=== PATIENT | male | born 1935 | race Caucasian/White ===

== ENCOUNTER 2017-02-20 20:24 | Emergency (ER) | payer OTHER ==
[2017-02-20] MEDS ORDERED: TDAP ADULT 0.5 ML INJ (BOOSTRIX) IM ONE (21:45)
[2017-02-20] MEDS ORDERED: LET GEL TOPICAL 1 EA SYR TP ONE (22:13)
[2017-02-20] MEDS ORDERED: CEPHALEXIN 500MG PREPACK#4 BTL TAKEHOME ONE (22:14)
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
[2017-02-20] MEDS ORDERED: CEPHALEXIN 500 MG CAP PO ONE (22:21)
[2017-02-20 22:59] VITALS: BP 140/66; PULSE 82; RESP 15; TEMP 98.2; O2SAT 93
== END 2017-02-20 22:58 | disposition home or self-care (01) ==
DX: S51.012A Laceration without foreign body of left elbow, initial encounter (principal); S50.02XA Contusion of left elbow, initial encounter; Z79.82 Long term (current) use of aspirin; Z95.5 Presence of coronary angioplasty implant and graft; Z23 Encounter for immunization; V18.0XXA Pedal cycle driver injured in noncollision transport accident in nontraffic accident, initial encounter; Y93.55 Activity, bike riding

== ENCOUNTER 2018-03-28 14:54 | Inpatient (IN) | payer OTHER ==
[2018-03-28 16:28] LABS: PLATELET COUNT 129 10^3/uL (150-400)
[2018-03-28 16:50] LABS: INR 1.05 (0.83-1.16); PROTIME(PATIENT) 13.9 SEC (12.0-15.0)
--- NOTE | 2018-03-28 16:56 | EDPHY ---
H & P Time Seen by Provider: 03/28/18 16:00 HPI/ROS: HPI Shortness of breath. 82-year-old male by private vehicle with his . This patient reports that he was playing ice hockey. He reports that he was driving home. At rest. He had a sensation of shortness of breath and felt very lightheaded. He had a sensation of his heart beating very fast. He reports that he almost lost consciousness. He reports that he then started feeling better and well enough to continue driving and drove himself to the emergency department. No associated chest pain. No headache. No loss of sensation or weakness in his extremities. He does have a history of coronary artery disease with 2 stents placed in his LAD about 9 years ago. He has not had any intervention since that time. He is currently on aspirin and clopidogrel. ROS: Constitutional: No fever, no chills. As above. Eyes: No discharge. No changes in vision. ENT: No sore throat. No nasal congestion or rhinorrhea. Respiratory: No cough. As above. Cardiac: No chest pain, palpitations as above. Gastrointestinal: No abdominal pain, no vomiting, no diarrhea. Genitourinary: No hematuria. No dysuria or increased frequency with urination. Musculoskeletal: No back pain. No neck pain. No myalgias or arthralgias. Skin: No rashes. Neurological: No headache. No focal weakness or altered sensation. Past medical history: Coronary artery disease with stents placed as above, thoracic aortic aneurysm measuring 4.5 cm x 4.6 cm, hypertension, dyslipidemia. His cardiology rn is Dr. Rebel King. Currently takes a baby aspirin, carvedilol and clopidogrel. Social history: Here with his . 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 Drinks alcohol socially. Nonsmoker. Physical Exam: General Appearance: Alert, no distress. This patient is responding to questions appropriately and in full sentences. This patient appears well- hydrated and well-nourished. Eyes: Pupils equal and round no pallor or injection. No lid edema, erythema or injection. Respiratory: There are no retractions, lungs are clear to auscultation with good air movement bilaterally. Cardiovascular: Irregular, irregular rhythm. No murmur appreciated. Gastrointestinal: Abdomen is soft and nontender, no masses, bowel sounds normal. No focal tenderness at McBurney's point. No Dela Cruz sign. Neurological: Motor sensory function is grossly intact. Cranial nerves are normal. Gait is normal. Skin: Warm and dry, no rashes. Musculoskeletal: Neck is supple and nontender. Extremities are symmetrical. All joints range without pain or impingement. Psychiatric: No agitation. No depression. Database: EKG: EKG time is 4:01 p.m.; EKG shows a narrow complex normal sinus rhythm with a ventricular rate of 65. Multiple PVCs and PACs. Probable left ventricular hypertrophy. QS waves in V1 and V2. The OR, QRS, QT intervals are within normal limits. There are no ST-T wave changes indicative of ischemic or injury pattern. No evidence of right heart strain. Interpreted by me. Imaging: Chest x-ray PA and lateral; the cardiac mediastinal silhouette is unremarkable. Coronary stent on the left. Arterial sclerotic calcification of the thoracic aorta. Atelectasis versus fibrotic change left base No evidence of infiltrate or pneumothorax. No other acute cardiopulmonary disease process noted. Interpreted by me. CT angiogram of chest; no evidence of pulmonary embolism. Stable thoracic aortic aneurysm. Results discussed with staff radiologist. Procedures: Emergency department course: Triage vital signs reviewed. He is moderately hypertensive. Vital signs otherwise normal. IV established. Patient placed on a monitoring manager. EKG obtained and reviewed by myself. Patient's presentation is concerning for arrhythmia with near syncope. Acute coronary syndrome, pulmonary embolism, aortic dissection less likely. I discussed probable admission with the patient and his . They endorse. 5:00 p.m., the patient was re-evaluated. Resting comfortably at this time. He is currently asymptomatic. Results of his emergency department workup discussed with him and his . Elevated D-dimer and significance of this as well as indication for CT angiogram discussed. They endorse getting this test. He will be sent for CT angiogram shortly. I again discussed admission with him. He is in agreement. Hospitalist paged. 5:15 p.m., spoke with on-call hospitalist. Case discussed in detail with him. Patient accepted for admission to the hospitalist service telemetry observation. Cardiology to be paged by the hospitalist service. Rebel King will be notified. 5:45 p.m., patient re-evaluated, resting comfortably at this time. He remains asymptomatic. Results of CT angiogram of his chest discussed with him his in his son who is currently at bedside. His vital signs were reviewed and are stable. His remaining emergency department course under my care has been uneventful. He was admitted to the hospitalist service, telemetry observation in good condition. Differential Diagnosis: The differential diagnosis on this patient includes but is not limited to arrhythmia, pulmonary embolism, acute coronary syndrome, CHF. This represents a partial list of diagnoses considered. These considerations are based on history, physical exam, past history, reassessment and diagnostic testing. Smoking Status: Never smoked Constitutional: Initial Vital Signs Temperature (C) 36.8 C 03/28/18 14:57 Heart Rate 87 03/28/18 14:57 Respiratory Rate 18 03/28/18 14:57 Blood Pressure 153/104 H 03/28/18 14:57 O2 Sat (%) 94 03/28/18 14:57 O2 Delivery Mode Room Air Allergies/Adverse Reactions: No Allergies [NKA] Allergy (Verified 03/28/18 14:56) Home Medications: Medication Instructions Recorded Aspirin EC [Aspirin EC 81 mg (*)] 81 mg PO HS 06/19/15 Atorvastatin Calcium [Lipitor 40 80 mg PO HS 06/19/15 mg (*)] Clopidogrel Bisulfate [Plavix (*)] 75 mg PO DAILY 06/19/15 Nitroglycerin [Nitrostat 0.4 mg 0.4 mg SL PRN PRN 06/19/15 (*)] Cephalexin [Keflex] 500 mg PO QID 5 Days cap 02/20/17 Vitamin B12 02/20/17 Carvedilol 03/28/18 Medical Decision Making - Diagnostics Imaging Results: Imaging Impressions Chest X-Ray 03/28/18 16:01 Impression: 1. Mild subsegmental atelectasis left base versus fibrotic change. 2. Arteriosclerotic calcification of the thoracic aorta. 3. Coronary stent on the left. Chest/Thorax CTA 03/28/18 16:57 Impression: 1. Negative for pulmonary embolus. 2. Redemonstration of an ascending aortic aneurysm, which is stable since 2008. 3. Cholelithiasis. Findings and recommendations discussed with Leno Ovalles MD at 1727 hour, 03/28/2018. - Data Points Laboratory Results: Laboratory Results 03/28/18 16:05 03/28/18 16:05 03/28/1817/18 18 16:07 16:05 16:05 WBC 9.98 10^3/uL H 10^3/uL (3.80-9.50) RBC 4.21 10^6/uL L 10^6/uL (4.40-6.38) Hgb 14.3 g/dL g/dL (13.7-17.5) Hct 42.5 % % (40.0-51.0) MCV 101.0 fL H fL (81.5-99.8) MCH 34.0 pg pg (27.9-34.1) MCHC 33.6 g/dL g/dL (32.4-36.7) RDW 12.9 % % (11.5-15.2) Plt Count 129 10^3/uL L 10^3/uL (150-400) MPV 11.5 fL fL (8.7-11.7) Neut % (Auto) 61.9 % % (39.3-74.2) Lymph % (Auto) 28.1 % % (15.0-45.0) [place] % (Auto) 8.3 % % (4.5-13.0) Eos % (Auto) 1.2 % % (0.6-7.6) Baso % (Auto) 0.3 % % (0.3-1.7) Nucleat RBC Rel Count 0.0 % % (0.0-0.2) Absolute Neuts (auto) 6.18 10^3/uL 10^3/uL (1.70-6.50) Absolute Lymphs (auto) 2.80 10^3/uL 10^3/uL (1.00-3.00) Absolute Monos (auto) 0.83 10^3/uL H 10^3/uL (0.30-0.80) Absolute Eos (auto) 0.12 10^3/uL 10^3/uL (0.03-0.40) Absolute Basos (auto) 0.03 10^3/uL 10^3/uL (0.02-0.10) Absolute Nucleated RBC 0.00 10^3/uL 10^3/uL (0-0.01) Immature Gran % 0.2 % % (0.0-1.1) Immature Gran # 0.02 10^3/uL 10^3/uL (0.00-0.10) PT INR APTT D-Dimer Sodium 140 mEq/L mEq/L (135-145) Potassium 3.9 mEq/L mEq/L (3.3-5.0) Chloride 103 mEq/L mEq/L (97-110) Carbon Dioxide 27 mEq/l mEq/l (22-31) Anion Gap 10 mEq/L mEq/L (8-16) BUN 23 mg/dL mg/dL (7-23) Creatinine 1.0 mg/dL mg/dL (0.7-1.3) Estimated GFR > 60 Glucose 150 mg/dL H mg/dL (70-100) Calcium 9.4 mg/dL mg/dL (8.5-10.4) POC Troponin I 0.05 ng/mL ng/mL (0.00-0.08) NT-Pro-B Natriuret Pep 1230 pg/mL H pg/mL (0-450) 03/28/18 16:00 WBC RBC Hgb Hct MCV MCH MCHC RDW Plt Count MPV Neut % (Auto) Lymph % (Auto) [place] % (Auto) Eos % (Auto) Baso % (Auto) Nucleat RBC Rel Count Absolute Neuts (auto) Absolute Lymphs (auto) Absolute Monos (auto) Absolute Eos (auto) Absolute Basos (auto) Absolute Nucleated RBC Immature Gran % Immature Gran # PT 13.9 SEC SEC (12.0-15.0) INR 1.05 (0.83-1.16) APTT 25.9 SEC SEC (23.0-38.0) D-Dimer 1.24 ug/mLFEU H ug/mLFEU (0.00-0.50) Sodium Potassium Chloride Carbon Dioxide Anion Gap BUN Creatinine Estimated GFR Glucose Calcium POC Troponin I NT-Pro-B Natriuret Pep Point of Care Test Results: Chemistry 03/28/18 16:07 POC Troponin I 0.05 ng/mL ng/mL (0.00-0.08) Departure - Departure Disposition: [facility] Inpatient Acute Clinical Impression: Dyspnea, Near syncope
[2018-03-28] MEDS ORDERED: IOPAMIDOL (ISOVUE 370) 100 ML BTL IV ONE (16:59)
[2018-03-28] MEDS ORDERED: ACETAMINOPHEN 325 MG TAB PO PRN (18:28)
[2018-03-28] MEDS ORDERED: ONDANSETRON DISINTEGRATING 4 MG TAB PO PRN (18:28)
[2018-03-28] MEDS ORDERED: ONDANSETRON 4 MG/2 ML VIAL IVP PRN (18:28)
[2018-03-28] MEDS ORDERED: NITROGLYCERIN 0.4 MG BTL SL PRN (18:52)
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
[2018-03-28] MEDS ORDERED: ASPIRIN EC 81 MG TAB PO SCH (21:15)
[2018-03-28] MEDS: ASPIRIN EC 81 MG TAB PO SCH (21:58)
[2018-03-28] MEDS: ATORVASTATIN CALCIUM 40 MG TAB PO SCH (21:58)
--- NOTE | 2018-03-28 23:16 | CPEKG ---
Test Reason : OPEN Blood Pressure : / mmHG Vent. Rate : 065 BPM Atrial Rate : 000 BPM P-R Int : 262 ms QRS Dur : 092 ms QT Int : 417 ms P-R-T Axes : 006 000 094 degrees QTc Int : 434 ms Sinus rhythm Multiple premature complexes, vent & supraven Prolonged IA interval Left ventricular hypertrophy Anterior Q waves, possibly due to LVH Confirmed by Leno Ovalles ([id number]) on 03/28/2018 11:15:56 PM Referred By: Confirmed By:Leno Ovalles
[2018-03-29] MEDS: CLOPIDOGREL BISULFATE 75 MG TAB PO SCH (10:39)
--- NOTE | 2018-03-29 11:49 | HOSPPROG ---
Hospitalist Progress Note Assessment/Plan: Assessment: 82yo M with history of CAD s/p QUINTON x2, thoracic aortic aneurysm, carotid stenosis s/p R CEA, HTN, HLD presents after episode of palpitations and near syncope. Admitted for observation. Plan: #Near syncope: with new wlal motion abnormality on echo and e/o complete heart block on review of tele. Plan for heart cath as well as possible pacer placement. #CAD: Anteroseptal [place] in 2008 s/p QUINTON x2 to LAD. as above. - Continue home asa, plavix, statin # heart block: with e/o complete heart block as well as short runs of VT in setting of new wall motion abnormality. #Thrombocytopenia: Chronic and plts essentially at baseline. Monitor. #HTN: BP mildly elevated. Not on anti-hypertensives at home. Monitor. #HLD: On statin. #H/o carotid stenosis: S/p R CEA. Diet: cardiac VTE ppx: ambulate Code: full Dispo: IP status, will need > 48 hours stay for eval/mgmt of above Care plan reviewed with cardiology and multidisciplinary care team Subjective: no significant overnight events, patient with plans for cath and possible pacer today Objective: Vital Signs Temp Pulse Resp BP Pulse Ox 36.7 C 60 18 126/77 H 93 03/29/18 08:00 03/29/18 08:00 03/29/18 08:00 03/29/18 08:00 03/29/18 08:00 03/28/18 03/29/18 03/30/18 05:59 05:59 05:59 Intake Total 300 Balance 300 PT 13.9 SEC (12.0-15.0) 03/28/18 16:00 INR 1.05 (0.83-1.16) 03/28/18 16:00 awake alert anicteric op clear rrr no mrg cta b soft nt nd no cce warm dry well perfused oriented appropriate ICD10 Worksheet Patient Problems: Problems Problem Status Onset Syncope Acute Elbow contusion Acute Elbow laceration Acute Dyspnea Acute Near syncope Acute
[2018-03-29] MEDS ORDERED: DIAZEPAM 5 MG TAB PO ONE (12:21)
[2018-03-29] MEDS ORDERED: diphenhydrAMINE 25 MG CAP PO ONE ×2 (12:21→13:14)
[2018-03-29] MEDS ORDERED: FAMOTIDINE 20 MG TAB PO ONE (12:21)
[2018-03-29] MEDS ORDERED: TEMAZEPAM 15 MG CAP PO PRN (12:21)
--- NOTE | 2018-03-29 12:24 | PDPROPOC ---
Sedation Plan of Care Sedation Plan of Care: vital signs stable, mental status noted, patient educated of risks, benefits, alternatives, patient can tolerate sedation ASA Classification: ASA 3 Planned drugs: fentanyl, midazolam Mallampati Score: Class 3 Mallampati Reference Image: Patient passed 3-3-2 rule?: Yes
--- NOTE | 2018-03-29 12:25 | PDHPUP ---
History & Physical Update H&P update statement: This history and physical update is based on an assessment of the patient which was completed after admission or registration (within 24 hours), but prior to the surgery/procedure. H&P update: H&P reviewed & patient examined, changes noted (patient has runs of wide complex tachycardia as well as brief atrial tach with phase 4 block and no conduction to ventrical with 3.5 second pauses. )
[2018-03-29] MEDS ORDERED: NS 1,000 ML IV SCH (12:30)
--- NOTE | 2018-03-29 12:30 | ECHO ---
[email or web address] [address] [address] Main: [phone] Fax: Transthoracic Echocardiogram Name: DARIN GAGNON MR#: [id number] Study Date: 03/29/2018 Study Time: 08:51 AM Date of : 1935 Age: 82 year(s) Height: 182.9 cm (72 in.) Weight: 74.84 kg (165 lb.) BSA: 1.96 m2 Gender: Male Examination: Echo Indication: eval ventricular fxn, valves; h/o stent nine years ago Image Quality: Adequate Contrast: Requested by: Ashish Fountain BP: 126 mmHg/77 mmHg Heart Rate: Rhythm: Indication: eval ventricular fxn, valves; h/o stent nine years ago Procedure Staff Icu Rn: Kymberly Blum [facility] Reading Physician: Pratik Sotomayor MD Requesting Provider: Conclusions: Mildly dilated left ventricle. Borderline concentric LV hypertrophy. Low normal left ventricular systolic function. EF is 52 %. There is a small area of mild hypokinesis in the inferolateral wall. Grade II Diastolic Dysfunction. Normal RV function. The left atrium is severely dilated. The right atrium is moderately dilated. Moderate mitral valve regurgitation is present. No mitral stenosis is present. The aortic valve is tri-leaflet. Mild aortic cusp calcification is noted. No aortic valve stenosis is present. Moderate tricuspid regurgitation is present. Right ventricular systolic pressure measures 58mmHg. The pulmonary artery pressure is moderately increased. Mildly dilated ascending aorta measuring 4.0 cm. No pericardial effusion. Measurements: Chambers Valvular Assessment AV/MV Valvular Assessment TV/PV Normal Normal Normal Name Value Range Name Value Range Name Value Range IVSd (2D): 1.1 cm (0.6 cm-1.1 AV meanP mmHg ( - ) TR Vmax: 3.47 mm/s ( - ) cm) PHYLICIA (VTI): 1.7 cm ( - ) TR PGmax: 48 mmHg ( - ) LVDd (2D): 5.7 cm (4.2 cm-5.9 MV E Vmax: 0.87 m/s ( - ) syst. PAP: 58 mmHg ( - ) cm) MV A Vmax: 0.74 m/s ( - ) PV Vmax: 0.90 m/s (0.6 m/s-0.9 LVDs (2D): 4.4 cm (2.1 cm-4 MV E/A: 1.18 ( - ) m/s) cm) MV meanP mmHg ( - ) PV PGmax: 3 mmHg ( - ) Patient: DARIN GAGNON Study Date: 03/29/2018 Page 1 of 3 08:51 AM LVPWd (2D): 1.0 cm (0.6 cm-1 MVA (Vmax): 4.9 m/s ( - ) cm) LVOTd 2.1 cm 2.1 cm mm LVEF (BP): 52 % (>=55 %) RVDd(2D): 3.6 cm (1.9 cm-3.8 cmmm) Continued Measurements: Chambers Valvular Assessment AV/MV Valvular Assessment TV/PV Name Value Name Value Name Value LADs Lon.1 cm MV Annulus: 3.2 cm CVP (est.): 10 mmHg LA Area: 29.8 cm2 MV DecTime: 155 m/s LA Volume: 107 ml MV E' Septal: 0.03 m/s LA Volume Index: 54.6 ml/m2 MV E/E' Septal: 25.60 TAPSE: 2.6 cm MV E/E' Lateral: 12.50 RA Area: 22.0 cm2 MV VTI: 14.90 cm MR ERO: 0.220 cm2 MR PISA radius: 7 mm MR Reg. Volume: 48 ml MR Reg. Fraction: 40 % Additional Vessels Name Value Ao Ascendin.0 cm Findings: Left Ventricle: Mildly dilated left ventricle. Borderline concentric LV hypertrophy. Low normal left ventricular systolic function. EF is 52 %. There is a small area of mild hypokinesis in the inferolateral wall. Grade II Diastolic Dysfunction. Right Ventricle: Normal size right ventricle. Normal RV function. Left Atrium: The left atrium is severely dilated. Normal appearing atrial septum. Right Atrium: The right atrium is moderately dilated. Mitral Valve: There is moderate thickening of the mitral valve leaflets. Moderate mitral valve regurgitation is present.No mitral stenosis is present. The cause of the mitral valve regurgitation is annular dilatation. Aortic Valve: The aortic valve is tri-leaflet. Mild aortic cusp calcification is noted. Trivial aortic valve regurgitation. No aortic valve stenosis is present. Tricuspid Valve: The tricuspid valve is normal in appearance and function. Moderate tricuspid regurgitation is present. Right ventricular systolic pressure measures 58mmHg. The pulmonary artery pressure is moderately increased. Pulmonic Valve: The pulmonic valve is normal in appearance and function. Trivial pulmonic valve regurgitation. There is no pulmonic stenosis seen. Aorta: Normal size aortic root. Mildly dilated ascending aorta measuring 4.0 cm. IVC: The IVC is normal sized. There is less than 50% respiratory excursion. Pericardium: No pericardial effusion. Patient: DARIN GAGNON Study Date: 03/29/2018 Page 2 of 3 08:51 AM (No Signature Object) Patient: DARIN GAGNON Study Date: 03/29/2018 Page 3 of 3 08:51 AM [id number]
[2018-03-29 12:47] LABS: PLATELET COUNT 141 10^3/uL (150-400)
[2018-03-29 12:59] LABS: INR 1.08 (0.83-1.16); PROTIME(PATIENT) 14.2 SEC (12.0-15.0)
[2018-03-29] MEDS ORDERED: FAMOTIDINE 20 MG TAB ONE (13:14)
[2018-03-29] MEDS ORDERED: DIAZEPAM 5 MG TAB ONE (13:14)
[2018-03-29] MEDS ORDERED: ASPIRIN EC 325 MG TAB PO ONE (13:14)
[2018-03-29] MEDS ORDERED: LIDOCAINE 1% 300 MG/30 ML SDV ONE (14:52)
[2018-03-29] MEDS ORDERED: fentaNYL 100 MCG/2 ML INJ ONE (14:53)
[2018-03-29] MEDS ORDERED: IOPAMIDOL (ISOVUE-370) 150 ML BTL IV ONE (14:53)
[2018-03-29] MEDS ORDERED: MIDAZOLAM 2 MG/2 ML VIAL ONE ×2 (14:53→16:26)
--- NOTE | 2018-03-29 16:35 | PDDXCAT ---
Diagnostic Cath Note - . Date: 03/29/18 Water Quality Analyst: Christine Indication: other (new wall motion abnormality inferolateral region, with complete heart block, wide complex tachycardia) - Procedure Access: right groin Procedure: left heart catheterization - Materials Left Heart Cath size: 6F Left Heart Cath materials: JL4.0, JL5.0, JR4.0, pigtail - Findings-Left Heart Catheterization LM: 5 mm in size and bifurcates into an LAD and circumflex system. LAD: 3.5mm in size. The vessel is widely patent there is an 80% ostial stenosis in the diagonal near the stented segment of the LAD. HUI III flow to the distal vessel. LCX: The circumflex is 3.5 mm in size with 100% occlusion in the circumflex proper distal to an obtuse marginal branch. There are left to left collaterals to the diustal vessel implying some degree of chronicity. This lesion is new compared to angiography 2008. RCA: 50% ostial stenosis with relatively diffuse and calcific disease. There is HUI flow to the distal vessel. EDP: 28mmHg LVEF: The left ventricle is enlarged and not well visualized with LV injection. EF 40-45%. Wall motion: There is anterior wall and apical hypokinesis consistent with his prior history of an NC. The visualized portion of the thoracic aorta is enlarged and is likely aneurysmal. Complications: NONE Estimated blood loss: <50ml Closure method: Angioseal Assessment: Bill has [place] vessel coronary disease with widely patent LAD stents and HUI III flow to the LAD. New occlusion of the distal Left circumflex likely chronic because of collateral circulation. There is obstructive disease of the third diagonal vessel and ostial RCA disease all of which should be managed medically. Plan: The patient should have an EP study to evaluate whether or not he would benefit from a pacemaker or an AICD. He has both atrial tachycardia with Phase IV block as well as wide complex tachycardia, which may be aberrantly conducted a tach versus scar related ventricular tachycardia. We will plan on pacer or AICD insertion following EP study by Dr. Melvin tomorrow. Intervention: NONE Patient Problems: Problems Problem Status Onset Dyspnea Acute Near syncope Acute Elbow contusion Acute Elbow laceration Acute Syncope Acute
[2018-03-29] MEDS ORDERED: BIVALIRUDIN 250 MG/5 ML VIAL IV ONE (16:48)
--- NOTE | 2018-03-29 16:54 | ASMTCMCOM ---
CM Note CM Note Notes: Spoke with pt, significant other and RN in the pt's room. Pt lives at home independently and very active in fact playing hockey the day of admission. Pt to receive heart catheterization and possible pacer placement today. Pt is anticipated to d/c home independently.CM to follow. D/C Plan: Independent Date Signed: 03/29/2018 04:53 PM Electronically Signed By:Christy Quintero
[2018-03-29] MEDS ORDERED: ATROPINE SULFATE 1 MG/10 ML SYR ONE (17:12)
[2018-03-29] MEDS ORDERED: ATROPINE SULFATE 1 MG/10 ML SYR IVP PRN (18:27)
[2018-03-29] MEDS ORDERED: OXYCODONE/APAP 5/325 TAB PO PRN (18:27)
[2018-03-29] MEDS: ATORVASTATIN CALCIUM 40 MG TAB PO SCH (20:21)
[2018-03-29] MEDS: ASPIRIN EC 81 MG TAB PO SCH (20:21)
[2018-03-29] MEDS ORDERED: ASPIRIN EC 81 MG TAB PO SCH (21:00)
[2018-03-30 04:18] LABS: PLATELET COUNT 123 10^3/uL (150-400)
[2018-03-30 04:25] LABS: INR 1.18 (0.83-1.16); PROTIME(PATIENT) 15.2 SEC (12.0-15.0)
--- NOTE | 2018-03-30 07:48 | PDMN ---
Medical Necessity Medical necessity: MCG: M89 CP- indicative or serious dg other than CAD- pt with extensive cardiac hx now with near syncope, echo showing complete heart block , cardiac cath showing obstructive disease- atrial tachycardia with Phase IV block , wide complex tachycardia, , poss EP study and pacemaker? further eval and tx needed status changed 03/29/18 for ongoing med nec > 2 MN
[2018-03-30] MEDS: CLOPIDOGREL BISULFATE 75 MG TAB PO SCH ×2 (11:41→12:43)
--- NOTE | 2018-03-30 13:15 | HOSPPROG ---
Hospitalist Progress Note Assessment/Plan: Assessment: 82yo M with history of CAD s/p QUINTON x2, thoracic aortic aneurysm, carotid stenosis s/p R CEA, HTN, HLD presents after episode of palpitations and near syncope found to have runs of complete heart block and WCT Plan: #Near syncope: with new wall motion abnormality on echo and e/o complete heart block on review of tele. s/p heart cath with no intervention. Plan for EP study today as next. # heart block: with e/o complete heart block as well as short runs of VT in setting of new wall motion abnormality. EP study with possible AICD/pacer placement today. #CAD: Anteroseptal GA in 2008 s/p QUINTON x2 to LAD. as above-cath yesterday without e/o flow limiting obstruction. Continue home asa, plavix, statin #Thrombocytopenia: Chronic and plts essentially at baseline. Monitor. # HTN: BP mildly elevated. Not on anti-hypertensives at home. Monitor. # HLD: On statin. #H/o carotid stenosis: S/p R CEA. Diet: cardiac VTE ppx: ambulate Code: full Dispo: IP status, will need > 48 hours stay for eval/mgmt of above Care plan reviewed with cardiology and multidisciplinary care team, further hx obtained from patients and son present at baseline Subjective: no significant overnight events, patient notes that he is feeling eager to get the procedure done, he currently feels well Objective: Vital Signs Temp Pulse Resp BP Pulse Ox 36.7 C 58 L 16 134/78 H 94 03/30/18 11:42 03/30/18 11:42 03/30/18 11:42 03/30/18 11:42 03/30/18 11:42 Laboratory Results 03/30/18 03:14 03/30/18 03:14 PT 15.2 SEC (12.0-15.0) H 03/30/18 03:14 INR 1.18 (0.83-1.16) H 03/30/18 03:14 awake alert anicteric op clear rrr no mrg cta b soft nt nd no cce warm dry well perfused oriented appropriate ICD10 Worksheet Patient Problems: Problems Problem Status Onset Dyspnea Acute Near syncope Acute Elbow contusion Acute Elbow laceration Acute Syncope Acute
--- NOTE | 2018-03-30 14:40 | PDCARCONS ---
Cardiology Consult Reason for Consult: Near syncope Chief Complaint: Near syncope Requesting Physician: Rebel King History of Present Illness: I was asked by Dr. Rebel King to see this patient. Patient presented with sudden onset of near syncope while driving his car. Telemetry strips were reviewed which showed episodes of atrial arrhythmia/ tachycardia which did not conduct to his ventricle and cause sinus pauses. Also episode of wide complex rhythm was noted. He underwent coronary angiography yesterday which did not show any new lesions. History Information - Allergies/Home Medication List Allergies/Adverse Reactions: No Allergies [NKA] Allergy (Verified 03/28/18 14:56) Home Medications: Aspirin EC [Aspirin EC 81 mg (*)] 81 mg PO HS 06/19/15 [Last Taken 03/27/18] Atorvastatin Calcium [Lipitor 40 mg (*)] 40 mg PO HS 06/19/15 [Last Taken ] Clopidogrel Bisulfate [Plavix (*)] 75 mg PO DAILY 06/19/15 [Last Taken 03/28/18] Nitroglycerin [Nitrostat 0.4 mg (*)] 0.4 mg SL PRN PRN 06/19/15 [Last Taken Unknown] Herbals/Supplements -Info Only 1 ea PO DAILY 03/28/18 [Last Taken 03/28/18 11:00 ] Past Medical History: - Social History Smoking Status: Never smoked Alcohol Use: Rarely Drug Use: None Physical Exam Physical Exam: Temp Pulse Resp BP Pulse Ox 36.7 C 58 L 16 134/78 H 94 03/30/18 11:42 03/30/18 11:42 03/30/18 11:42 03/30/18 11:42 03/30/18 11:42 O2 (L/minute) 1 Constitutional: no apparent distress, appears nourished Eyes: PERRL, anicteric sclera Ears, Nose, Mouth, Throat: moist mucous membranes, hearing normal Cardiovascular: regular rate and rhythym Gastrointestinal: normoactive bowel sounds, soft, non-tender abdomen Genitourinary: no bladder fullness Skin: warm, normal color Neurologic: AAOx3, sensation intact bilaterally Psychiatric: interacting appropriately, not anxious, not encephalopathic Lab and Imaging 03/30/18 03:14 03/30/18 03:14 WBC 8.11 10^3/uL (3.80-9.50) 03/30/18 03:14 RBC 4.06 10^6/uL (4.40-6.38) L 03/30/18 03:14 Hgb 13.6 g/dL (13.7-17.5) L 03/30/18 03:14 Hct 41.1 % (40.0-51.0) 03/30/18 03:14 MCV 101.2 fL (81.5-99.8) H 03/30/18 03:14 MCH 33.5 pg (27.9-34.1) 03/30/18 03:14 MCHC 33.1 g/dL (32.4-36.7) 03/30/18 03:14 RDW 13.3 % (11.5-15.2) 03/30/18 03:14 Plt Count 123 10^3/uL (150-400) L 03/30/18 03:14 MPV 11.7 fL (8.7-11.7) 03/30/18 03:14 Neut % (Auto) 45.4 % (39.3-74.2) 03/30/18 03:14 Lymph % (Auto) 39.7 % (15.0-45.0) 03/30/18 03:14 [place] % (Auto) 10.2 % (4.5-13.0) 03/30/18 03:14 Eos % (Auto) 4.1 % (0.6-7.6) 03/30/18 03:14 Baso % (Auto) 0.4 % (0.3-1.7) 03/30/18 03:14 Nucleat RBC Rel Count 0.0 % (0.0-0.2) 03/30/18 03:14 Absolute Neuts (auto) 3.68 10^3/uL (1.70-6.50) 03/30/18 03:14 Absolute Lymphs (auto) 3.22 10^3/uL (1.00-3.00) H 03/30/18 03:14 Absolute Monos (auto) 0.83 10^3/uL (0.30-0.80) H 03/30/18 03:14 Absolute Eos (auto) 0.33 10^3/uL (0.03-0.40) 03/30/18 03:14 Absolute Basos (auto) 0.03 10^3/uL (0.02-0.10) 03/30/18 03:14 Absolute Nucleated RBC 0.00 10^3/uL (0-0.01) 03/30/18 03:14 Immature Gran % 0.2 % (0.0-1.1) 03/30/18 03:14 Immature Gran # 0.02 10^3/uL (0.00-0.10) 03/30/18 03:14 PT 15.2 SEC (12.0-15.0) H 03/30/18 03:14 INR 1.18 (0.83-1.16) H 03/30/18 03:14 APTT 28.9 SEC (23.0-38.0) 03/30/18 03:14 D-Dimer 1.24 ug/mLFEU (0.00-0.50) H 03/28/18 16:00 Sodium 142 mEq/L (135-145) 03/30/18 03:14 Potassium 4.2 mEq/L (3.3-5.0) 03/30/18 03:14 Chloride 107 mEq/L (97-110) 03/30/18 03:14 Carbon Dioxide 28 mEq/l (22-31) 03/30/18 03:14 Anion Gap 7 mEq/L (8-16) L 03/30/18 03:14 BUN 16 mg/dL (7-23) 03/30/18 03:14 Creatinine 1.1 mg/dL (0.7-1.3) 03/30/18 03:14 Estimated GFR > 60 03/30/18 03:14 Glucose 103 mg/dL (70-100) H 03/30/18 03:14 Calcium 8.6 mg/dL (8.5-10.4) 03/30/18 03:14 Magnesium 1.8 mg/dL (1.6-2.3) 03/30/18 03:14 POC Troponin I 0.05 ng/mL (0.00-0.08) 03/28/18 16:07 Troponin I 0.055 ng/mL (0.000-0.034) H 03/29/18 01:05 NT-Pro-B Natriuret Pep 1230 pg/mL (0-450) H 03/28/18 16:05 Triglycerides 64 mg/dL (40-150) 03/29/18 12:40 Cholesterol 119 mg/dL (140-220) L 03/29/18 12:40 Cholesterol Risk Factr 0.4 (0.2-1.0) 03/29/18 12:40 LDL Cholesterol, Calc 61 mg/dL (80-100) L 03/29/18 12:40 LDL Risk Factor 0.6 (0.2-1.0) 03/29/18 12:40 VLDL Cholesterol 13 mg/dL (8-25) 03/29/18 12:40 Non-HDL Cholesterol 74 mg/dL (90-129) L 03/29/18 12:40 HDL Cholesterol 45 mg/dL (40-65) 03/29/18 12:40 LDL/HDL Ratio 1.36 RATIO (1.00-3.64) 03/29/18 12:40 Cholesterol/HDL Ratio 2.64 RATIO (1.00-4.97) 03/29/18 12:40 Patient ABO/Rh O POSITIVE 03/30/18 03:14 Antibody Screen NEGATIVE 03/30/18 03:14 Visualized and Interpreted EKG results: Yes EKG additional interpertation: Sinus rhythm. First-degree heart block. Nonspecific IVCD. Telemetry: Reviewed, see assessment and plan A/P Assessment: Near syncope Coronary artery disease, prior [place] LVEF 40-45% Plan: 82-year-old male presenting with near syncope. I have reviewed his telemetry monitoring. This shows atrial tachycardia which does not conduct to the ventricles causing ventricular pauses of up to 3 sec. We also noticed a wide complex tachycardia at approximately 150 beats per minute, same rate as his atrial tachycardia. Differential diagnosis of the wide complex tachycardia is atrial tachycardia with aberrancy. Also given his LV EF 40 40-45% and prior ventricular scar, ventricular tachycardia remains in the differential diagnosis. At the minimum, this gentleman needs a dual-chamber pacemaker implantation. Electrophysiology studies recommended to assess for inducible ventricular tachycardia, if this is the case a dual-chamber ICD will be implanted. Risks and benefits of EPS/ablation including but not limited to risks of , myocardial infarction, stroke, tamponade which may require emergent cardiac surgery, AV block requiring implantation of a permanent pacemaker, vascular access complications which may require surgery, deep venous thrombosis, pulmonary embolism, infection, risks associated with sedation/anesthesia were discussed with the patient. Risks of transvenous pacemaker implantation including but not limited to , myocardial infarction, stroke, cardiac tamponade which may require emergent cardiac surgery, infection, bleeding, pneumothorax, lead dislodgement and risks of sedation/anesthesia were discussed. Long-term issues like pacemaker pocket erosion, lead failure, venous stenosis, superior vena cava syndrome, need for lead extraction were discussed. Need for close long-term follow-up in our device clinic was emphasized. Need for generator change was discussed. Risks of transvenous ICD implantation including but not limited to , myocardial infarction, stroke, cardiac tamponade which may require emergent cardiac surgery, infection, bleeding, pneumothorax, lead dislodgement and risks of sedation/anesthesia were discussed. Long-term issues like ICD pocket erosion , lead failure, venous stenosis, superior vena cava syndrome, need for lead extraction were discussed. Need for close long-term follow-up in our device clinic was emphasized. Need for generator change was discussed. We discussed that appropriate and inappropriate ICD shocks can occur. The risk of inappropriate ICD shocks is higher in patients with atrial fibrillation. His was present for this dictation. Case was discussed in person with the patient's creative strategist Dr. Rebel King.
[2018-03-30] MEDS ORDERED: HEPARIN 10,000 UNIT/10 ML MDV (1,000 UNIT/ML) ONE (15:26)
[2018-03-30] MEDS ORDERED: LIDOCAINE 1% 300 MG/30 ML SDV ONE (15:26)
[2018-03-30] MEDS ORDERED: IOPAMIDOL (ISOVUE-300) 100 ML BTL ONE (15:27)
[2018-03-30] MEDS ORDERED: BUPIVACAINE 0.75% 10 ML SDV ONE (15:27)
[2018-03-30] MEDS ORDERED: PROPOFOL/EMULSION 500 MG/50 ML BOTTLE IV ONE (15:34)
[2018-03-30] MEDS ORDERED: MIDAZOLAM 2 MG/2 ML VIAL ONE (15:38)
[2018-03-30] MEDS ORDERED: fentaNYL 100 MCG/2 ML INJ ONE (15:38)
[2018-03-30] MEDS ORDERED: MIDAZOLAM 2 MG/2 ML VIAL IVP ONE (16:15)
[2018-03-30] MEDS ORDERED: ISOPROTERENOL HCL/D5W 0.2 MG/50 ML BAG IV ONE (16:18)
[2018-03-30] MEDS ORDERED: NALOXONE HCL 0.4 MG/ML INJ IVP PRN (16:20)
[2018-03-30] MEDS ORDERED: ALBUTEROL 3 ML DEYVIAL IH PRN (16:20)
[2018-03-30] MEDS ORDERED: DEXAMETHASONE 4 MG/ML VIAL IVP PRN (16:20)
[2018-03-30] MEDS ORDERED: fentaNYL 100 MCG/2 ML INJ IVP PRN (16:20)
--- NOTE | 2018-03-30 16:20 | PDANEPAE ---
ANE History of Present Illness 82 y/o male for EP study and possible ICD. History of [place]. Stents X 2 ANE Past Medical History - Cardiovascular History Hx Coronary Artery / Peripheral Vascular Disease: Yes - Pulmonary History Hx Oxygen in Use at Home: No Hx Sleep Apnea: No - Endocrine History Hx Diabetes: No - Chronic Pain History Chronic Pain: No ANE Review of Systems Review of systems is: negative Review of Systems: ANE Patient History - Allergies Allergies/Adverse Reactions: No Allergies [NKA] Allergy (Verified 03/28/18 14:56) - Home Medications Home Medications: Aspirin EC [Aspirin EC 81 mg (*)] 81 mg PO HS 06/19/15 [Last Taken 03/27/18] Atorvastatin Calcium [Lipitor 40 mg (*)] 40 mg PO HS 06/19/15 [Last Taken ] Clopidogrel Bisulfate [Plavix (*)] 75 mg PO DAILY 06/19/15 [Last Taken 03/28/18] Nitroglycerin [Nitrostat 0.4 mg (*)] 0.4 mg SL PRN PRN 06/19/15 [Last Taken Unknown] Herbals/Supplements -Info Only 1 ea PO DAILY 03/28/18 [Last Taken 03/28/18 11:00 ] - Smoking Hx Smoking Status: Never smoked - Alcohol Use Alcohol Use: Rarely ANE Labs/Vital Signs - Labs Result Diagrams: 03/30/18 03:14 03/30/18 03:14 - Vital Signs Blood Pressure: 134/78 Heart Rate: 58 Respiratory Rate: 16 O2 Sat (%): 94 Height: 182.88 cm Weight: 74.933 kg ANE Physical Exam - Airway Neck exam: FROM Mallampati Score: Class 2 Mouth exam: normal dental/mouth exam - Pulmonary Pulmonary: no respiratory distress - Cardiovascular Cardiovascular: regular rate and rhythym - ASA Status ASA Status: III ANE Anesthesia Plan Anesthesia Plan: MAC
[2018-03-30] MEDS ORDERED: CEFAZOLIN 1 GM/DEXTROSE/50 ML BAG IV ONE (17:05)
[2018-03-30] MEDS ORDERED: LIDO/EPI 1% **for epidural** 30 ML SDV ONE (17:05)
[2018-03-30] MEDS ORDERED: PROPOFOL 200 MG/20 ML VIAL ONE (17:23)
[2018-03-30] MEDS ORDERED: ceFAZolin 2 GM/DEXTROSE 100 ML IV ONE (17:30)
[2018-03-30] MEDS ORDERED: BACITRACIN 50,000 UNIT in SODIUM CL IRRIG SOLUTION 1,000 ML IRR ONE (17:30)
--- NOTE | 2018-03-30 18:49 | EPPROC ---
Electrophysiology Procedure Note: PROCEDURE: 1. MRI compatible dual chamber automatic implantable cardioverter-defibrillator implantation 2. Defibrillator threshold testing DATE OF PROCEDURE: 03/30/2018 DEVICE: Biotronik Ilivia 7 DR-T DF4 ProMRI model# 990186 Serial #[id number] LEADS: Right atrial lead Biotronik Solia S 45 model#236189 Serial # [id number]; Right ventricular lead Biotronik Plexa ProMRI S 65 model# 922270 Serial# [id number] COMPLICATIONS: None ANIMAL RESEARCHER: Rebel King MD INDICATION AND APPROPRIATE USE CRITERIA: The device is being used as a primary prevention. The patient has compete heart block and wide complex tachycardia as well as atrial tachycardia and sustained VT. PROCEDURE IN DETAIL: After informed consent was obtained and n.p.o. status was confirmed, the region of the left subclavicular fossa was cleaned, prepped and draped in a sterile fashion. Approximately 30 mL of 1% lidocaine was utilized for local anesthesia. The skin was sharply incised with a #10 blade. Electrocautery and local pressure were used for hemostasis. Sharp and blunt dissection was used to form a pacemaker pocket overlying the pectoralis major fascia. An 18-gauge Cook needle was used to gain access to the left subclavian vein x 2. J wires were advanced into the inferior vena cava. A 8-F Safe sheath was advanced over the lateral wire. Wire and stylet were removed. Ventricular lead was manipulated with care into the RV apex under direct fluoroscopic guidance and screwed into place. Threshold was tested and found to be 0.40ms width. R- wave amplitude was measured at 3.5mV. Lead impedance was 536 Ohms. The lead was sutured in place with #0 Silk. The medial wire was used to place a second peel- away sheath wire and dilator was removed and a second pacer lead was manipulated with care into the right atrial appendage and screwed into place. The threshold was 3.5 V at 0.4 ms width. P-wave amplitude was 2.0 mV, lead impedance was 493 Ohms. The peel away sheath was removed and the leads were sutured in place with a #0 Silk. The pocket was thoroughly flushed and checked for bleeding. Hemostasis was established. The antibiotic soaked gauze was removed from the pocket. The atrial lead serial number was checked and placed in the upper pole lead housing of the pulse generator and set screw firmly applied. The procedure was repeated for the RV lead. The device was placed in the pocket and sutured in place with # 0 Silk. The skin was closed with a 3-layered 3-0 Vicryl, 2-0 Vicryl and 4-0 Monocryl repair with excellent wound edge opposition and hemostasis documented. The device was set with a VT1 monitoring zone of greater than 171 BPM(beats per minute) VT2 zone of 181 with ATP (Antitachycardia pacing) X 3, followed by a 40 Joules shock x 8 if needed. The V fib zone is set at 214 BPM with ATP x 1 only if the rhythm meets stability criteria (12msec difference between cycle lengths at maximum) otherwise the device will deliver a 40 Joule shocks x 8 cycles with alternating polarity between each of those shocks. The patient returned to the post cath recovery unit in good and stable condition where a stat postoperative chest x-ray and EKG will be obtained. FINAL IMPRESSION: Successful elective MRI compatible dual chamber automatic implantable cardioverter-defibrillator insertion without immediate complication. Patient Problems: Problems Problem Status Onset Dyspnea Acute Near syncope Acute Elbow contusion Acute Elbow laceration Acute Syncope Acute
--- NOTE | 2018-03-30 18:58 | POSTANESTH ---
Post Anesthetic Evaluation Cardiovascular Status: Normal, Stable Respiratory Status: Normal, Stable Level of Consciousness/Mental Status: Can Participate in Eval Pain Control: Adequate, Prn Tx Ordered Nausea/Vomiting Control: Adequate, Prn Tx Ordered Complications Possibly Related to Anesthesia: None Noted
[2018-03-30] MEDS: ATORVASTATIN CALCIUM 40 MG TAB PO SCH (22:51)
[2018-03-30] MEDS: ASPIRIN EC 81 MG TAB PO SCH (22:52)
[2018-03-31] MEDS: CLOPIDOGREL BISULFATE 75 MG TAB PO SCH (08:53)
--- NOTE | 2018-03-31 09:51 | EPPROC ---
Electrophysiology Procedure Note: Procedure date 03/30/2018 DIAGNOSTIC ELECTROPHYSIOLOGIC STUDY Procedures performed: 1. Fluoroscopy 2. EP evaluation with RA/RV/LA pace/record, with arrhythmia induction 3. EP evaluation with RA/RV pace record, insert/reposition catheter, with arrhythmia induction 4. Programmed stimulation + pacing after IV drug INDICATION: Unexplained near-syncope Ventricular pauses related to atrial tachycardia, phase 4 block Ischemic cardiomyopathy LVEF 40-45%, prior [place] Wide complex tachycardia seen on telemetry PROCEDURE: Catheters & Anesthesia: The patient arrived in the Electrophysiology Laboratory in the fasting state. The right clavicular region, right groin, & left groin area were prepped & draped in the usual sterile manner. Dr. Tori Laws administered anesthesia. Appropriate non-invasive blood pressure, pulse oximetry & end- tidal CO2 monitoring was established. All catheters were placed percutaneously using the modified Seldinger technique , and advanced into position under fluoroscopic guidance. Vascular ultrasound was used for access. One #7 [place] deflectable octapolar electrode catheter was advanced to the His-bundle position via the left femoral vein. A 20 pole catheter was placed via left femoral vein into the the coronary sinus. Pacing catheter was also moved to the RV OT and RV apex. Programmed ventricular stimulation using standard protocol induced a fast ventricular tachycardia/ventricular flutter, cycle length 210 milliseconds with hemodynamic instability that needed to be defibrillated. Post defibrillation the patient had atrial fibrillation which was electively cardioverted x2 but recurred and ultimately converted to sinus rhythm on its own. Programmed stimulation was performed from the right atrium, right ventricle and coronary sinus (left atrium). The catheters were removed. Vascular access sheaths were removed in the EP lab after placing subcutaneous pursestring suture. The patient was left on the table for Dr. Rebel King to place a dual-chamber defibrillator. CONCLUSIONS 1. Normal sinus and AV node function. 2. No evidence of accessory AV pathway presence. 3. Sustained and hemodynamically unstable ventricular tachycardia. 4. No apparent complications. Patient Problems: Problems Problem Status Onset Syncope Acute Elbow contusion Acute Elbow laceration Acute Dyspnea Acute Near syncope Acute
--- NOTE | 2018-03-31 11:53 | CPEKG ---
Test Reason : OPEN Blood Pressure : / mmHG Vent. Rate : 056 BPM Atrial Rate : 055 BPM P-R Int : 239 ms QRS Dur : 088 ms QT Int : 479 ms P-R-T Axes : -23 -02 061 degrees QTc Int : 463 ms Sinus rhythm Prolonged RI interval Probable anteroseptal infarct, old Confirmed by Pa Michelle ([id number]) on 03/31/2018 11:53:01 AM Referred By: Confirmed By:Pa Michelle
--- NOTE | 2018-03-31 12:09 | CPEKG ---
Test Reason : OPEN Blood Pressure : / mmHG Vent. Rate : 063 BPM Atrial Rate : 063 BPM P-R Int : 246 ms QRS Dur : 090 ms QT Int : 443 ms P-R-T Axes : 044 012 054 degrees QTc Int : 454 ms Sinus rhythm Prolonged ND interval Left ventricular hypertrophy Anterior Q waves, possibly due to LVH Appears to be a single atrial pacing spike Confirmed by Pa Michelle ([id number]) on 03/31/2018 12:08:53 PM Referred By: Confirmed By:Pa Michelle
--- NOTE | 2018-03-31 16:21 | ECHO ---
[email or web address] [address] [address] Main: [phone] Fax: [email or web address] Echocardiogram Name: DARIN GAGNON MR#: [id number] Study Date: 03/31/2018 Study Time: 10:51 AM Date of : 1935 Age: 82 year(s) Height: 182.9 cm (72 in.) Weight: 74.84 kg (165 lb.) BSA: 1.96 m2 Gender: Male Examination: Limited Echo Indication: Post Pacemaker Image Quality: Contrast: Requested by: Ashish Fountain BP: 138 mmHg/94 mmHg Heart Rate: Rhythm: Indication: Post Pacemaker Procedure Staff Loan Manager: Donato Stewart RDCS Reading Physician: Rebel King MD Requesting Provider: Conclusions: Normal global systolic LV function. Trivial anterior pericardial effusion. This is a limited echo to evaluate pacemaker placement in the RV [place]. The pacer wire is well placed. The apex of the RV is slighly tortuous and pacemaker wire is placed with the casper in the freewall. There is an associated small anterior pericardial effusion estimated at 10ml in volume, without evidence of tamponade. . The limited echo was performed because of a finding of question of the lead position on X-ray. The defib lead is very near the RV apex. The casper is in the free wall as the RV apex curves towards the tip of the LV apex. The RV lead imepedances and thresholds are quite good indicating contact with the lead tip and the myocardium. Measurements: Chambers Valvular Assessment AV/MV Valvular Assessment TV/PV Normal Normal Normal Name Value Range Name Value Range Name Value Range Continued Measurements: Findings: Left Ventricle: Normal global systolic LV function. Pericardium: Trivial anterior pericardial effusion. Exam Comments: This is a limited echo to evaluate pacemaker placement in the RV [place]. The pacer wire is well placed. The apex of the RV is slighly tortuous and pacemaker wire is placed with the casper in the freewall. There is an associated small anterior pericardial effusion estimated at 10ml in volume, without evidence of tamponade. . Patient: DRAIN GAGNON Study Date: 03/31/2018 Page 1 of 2 10:51 AM (No Signature Object) Patient: DARIN GAGNON Study Date: 03/31/2018 Page 2 of 2 10:51 AM [id number]
[2018-03-31 16:42] VITALS: BP 142/85
== END 2018-03-31 17:34 | disposition home or self-care (01) | DRG 225 ==
LOC: F2W 20:26 → OBSVTOIN 03-29 18:43
PROVIDERS: ADMIT Internal Medicine; ATTEND Internal Medicine
PROC: B2151ZZ Fluoroscopy of Left Heart using Low Osmolar Contrast (ICD-10-PCS; 2018-03-29)
PROC: B2111ZZ Fluoroscopy of Multiple Coronary Arteries using Low Osmolar Contrast (ICD-10-PCS; 2018-03-29)
PROC: 4A023N7 Measurement of Cardiac Sampling and Pressure, Left Heart, Percutaneous Approach (ICD-10-PCS; 2018-03-29)
PROC: 02H63KZ Insertion of Defibrillator Lead into Right Atrium, Percutaneous Approach (ICD-10-PCS; principal; 2018-03-30)
PROC: 0JH639Z Insertion of Cardiac Resynchronization Defibrillator Pulse Generator into Chest Subcutaneous Tissue and Fascia, Percutaneous Approach (ICD-10-PCS; principal; 2018-03-30)
PROC: 02HK3KZ Insertion of Defibrillator Lead into Right Ventricle, Percutaneous Approach (ICD-10-PCS; principal; 2018-03-30)
PROC: 4A023FZ Measurement of Cardiac Rhythm, Percutaneous Approach (ICD-10-PCS; 2018-03-30)
PROC: 02K83ZZ Map Conduction Mechanism, Percutaneous Approach (ICD-10-PCS; 2018-03-30)
PROC: 3E053KZ Introduction of Other Diagnostic Substance into Peripheral Artery, Percutaneous Approach (ICD-10-PCS; 2018-03-30)
DX: I44.2 Atrioventricular block, complete (principal); I25.10 Atherosclerotic heart disease of native coronary artery without angina pectoris; I25.82 Chronic total occlusion of coronary artery; I71.2 Thoracic aortic aneurysm, without rupture; I10 Essential (primary) hypertension; E78.5 Hyperlipidemia, unspecified; I25.2 Old myocardial infarction; Z95.5 Presence of coronary angioplasty implant and graft; Z79.82 Long term (current) use of aspirin
CPT/HCPCS: 84484-PO; A4649; C1721; C1731; C1777; C1898; G0378; J0461; J0583; J0690; J1644; J2250; J2704; J3010; Q9967

== ENCOUNTER 2019-01-05 19:08 | Emergency (ER) | payer OTHER | END 2019-01-06 00:57 | disposition home or self-care (01) ==